=== PATIENT | female | born 1945 | race Caucasian/White ===

== ENCOUNTER → 2017-03-13 | Outpatient (CLI) | payer MEDICARE ==
[~2017-03-13] MED LIST: COMBIGAN5 ML OU; DELTASONE DPS5 MG PO; FOLVITE-DPS1 MG PO; LUMIGAN 0.01%2.5 ML OU; METHOTREXATE2.5 MG PO; MIRALAX17 GM PO; NEURONTIN DPS100 MG PO; PEPCID DPS20 MG PO; PRILOSEC DPS20 MG PO; SENOKOT DPS8.6 MG PO; TYLENOL DPS325 MG PO; ULTRAM DPS50 MG PO; VITAMIN D250000 UNIT PO; WELLBUTRIN SR150 M1 PO
== END | disposition home or self-care (01) ==
LOC: RAD.S 03-09 10:00
DX: S32.9XXA Fracture of unspecified parts of lumbosacral spine and pelvis, initial encounter for closed fracture (principal); R93.7 Abnormal findings on diagnostic imaging of other parts of musculoskeletal system; M25.559 Pain in unspecified hip